=== PATIENT | female | born 1980 | race Hispanic/Latino ===

== ENCOUNTER 2016-12-14 21:11 | Emergency (ER) | payer OTHER | END 2016-12-14 21:58 | disposition home or self-care (01) | LOC: ERS 21:11 | DX: H65.92 Unspecified nonsuppurative otitis media, left ear (principal); E78.5 Hyperlipidemia, unspecified | CPT/HCPCS: 99283 ==

== ENCOUNTER 2017-02-05 14:13 | Emergency (ER) | payer OTHER ==
--- NOTE | 2017-02-05 15:50 | RAD ---
2 VIEW CHEST: Date: 02/05/17 COMPARISON: 03/17/14. INDICATION: Cough and congestion. FINDINGS: Lungs are clear of focal consolidation. No effusion or pneumothorax. Cardiac silhouette is within nor mal limits of size. Minimal linear density left lower lung base is present. IMPRESSION: No focal consolidation. POS: [facility]
== END 2017-02-05 17:00 | disposition home or self-care (01) ==
LOC: ERS 14:13
DX: J06.9 Acute upper respiratory infection, unspecified (principal); G43.909 Migraine, unspecified, not intractable, without status migrainosus; E78.5 Hyperlipidemia, unspecified
CPT/HCPCS: 71020

== ENCOUNTER 2017-04-25 20:35 | Emergency (ER) | payer OTHER, SELFPAY | END 2017-04-25 23:10 | disposition home or self-care (01) | LOC: ERS 20:35 | DX: J30.9 Allergic rhinitis, unspecified (principal); J06.9 Acute upper respiratory infection, unspecified; G43.909 Migraine, unspecified, not intractable, without status migrainosus; E78.5 Hyperlipidemia, unspecified | CPT/HCPCS: 87081; 87430; 87804; 99283 ==

== ENCOUNTER 2017-07-15 09:10 | Emergency (ER) | payer BC, SELFPAY | END 2017-07-15 09:51 | disposition home or self-care (01) | LOC: ERS 09:10 | DX: S66.911A Strain of unspecified muscle, fascia and tendon at wrist and hand level, right hand, initial encounter (principal); E78.5 Hyperlipidemia, unspecified; G43.909 Migraine, unspecified, not intractable, without status migrainosus; T73.3XXA Exhaustion due to excessive exertion, initial encounter ==

== ENCOUNTER 2017-09-10 18:44 | Emergency (ER) | payer BC | END 2017-09-10 19:31 | disposition home or self-care (01) | LOC: ERS 18:44 | DX: I83.893 Varicose veins of bilateral lower extremities with other complications (principal); E78.5 Hyperlipidemia, unspecified; G43.909 Migraine, unspecified, not intractable, without status migrainosus | CPT/HCPCS: 99283 ==

== ENCOUNTER 2017-12-06 20:30 | Emergency (ER) | payer BC | END 2017-12-06 21:32 | disposition home or self-care (01) | LOC: ERS 20:30 | DX: J30.2 Other seasonal allergic rhinitis (principal); G43.909 Migraine, unspecified, not intractable, without status migrainosus | CPT/HCPCS: 99283 ==

== ENCOUNTER 2018-01-01 03:09 | Emergency (ER) | payer BC ==
[2018-01-01] MEDS ORDERED: Ketorolac Tromethamine 60 MG/2 ML VIAL ONE (03:40)
== END 2018-01-01 04:00 | disposition home or self-care (01) ==
LOC: ERS 03:09
DX: M54.6 Pain in thoracic spine (principal); E78.5 Hyperlipidemia, unspecified; G43.909 Migraine, unspecified, not intractable, without status migrainosus; Z79.899 Other long term (current) drug therapy
CPT/HCPCS: 96372; J1885

== ENCOUNTER 2018-03-10 18:10 | Emergency (ER) | payer BC, SELFPAY ==
--- NOTE | 2018-03-10 21:24 | ULT ---
RIGHT LOWER EXTREMITY VENOUS DUPLEX ULTRASOUND INCLUDING COLOR AND SPECTRAL DOPPLER IMAGIN03/10/18 HISTORY: Right posterior knee pain. Exam performed from groin to ankle including visualized greater saphenous, common femoral, superficia l femoral, profunda femoral, popliteal, trifurcation and posterior tibial vein regions. There is phas ic flow at all levels with normal compressibility and normal augmentation. No intraluminal thrombus. IMPRESSION: No evidence for deep venous thrombosis. POS: [facility]
== END 2018-03-10 21:36 | disposition home or self-care (01) ==
LOC: ERS 18:10
DX: I83.893 Varicose veins of bilateral lower extremities with other complications (principal); E78.5 Hyperlipidemia, unspecified; G43.909 Migraine, unspecified, not intractable, without status migrainosus

== ENCOUNTER 2018-06-19 09:01 | Emergency (ER) | payer BC, SELFPAY ==
[2018-06-19 10:14] LABS: #Basophils 0.1 thou/uL (0.0-0.2); #Eosinphils 0.2 thou/uL (0.0-0.7); #Lymphocytes 2.8 thou/uL (1.20-3.40); #Monocytes 0.4 thou/uL (0.11-0.59); #Neutrophils 4.2 thou/uL (1.40-6.50); %Basophils 0.9 % (0.0-1.0); %Eosinophils 2.4 % (0.0-10.0); %Lymphocytes 36.4 % (21.0-51.0); %Monocytes 5.6 % (0.0-10.0); %Neutrophils 54.8 % (42.0-75.0); Hemoglobin 9.9 g/dL (12.0-16.0); Mean Corpuscular HGB CONC 33.5 g/dL (32.0-36.0); Mean Corpuscular Hemoglobin 31.4 pg (27.0-31.0); Mean Corpuscular Volume 93.7 fL (78.0-98.0); Mean Platelet Volume 6.9 fL (7.4-10.4); Platelet Count 382 thou/uL (130-400); RBC Distribution Width 11.3 % (11.5-14.5); Red Blood Cell (RBC) Count 3.16 mill/uL (4.20-5.40); White Blood Cell (WBC) Count 7.7 thou/uL (4.8-10.8)
[2018-06-19 10:20] LABS: BHCG - Serum Negative (NEGATIVE); Pregs Control Background? CLEAR/WHITE (CLR/WHITE); Pregs Control Bar Appear? YES (CONTROL BAR)
== END 2018-06-19 10:57 | disposition home or self-care (01) ==
LOC: ERS 09:01
DX: D64.9 Anemia, unspecified (principal); N93.8 Other specified abnormal uterine and vaginal bleeding; E78.5 Hyperlipidemia, unspecified; G43.909 Migraine, unspecified, not intractable, without status migrainosus
CPT/HCPCS: 36415; 84703; 85025; 99284

== ENCOUNTER 2018-07-28 00:39 | Emergency (ER) | payer BC, SELFPAY | END 2018-07-28 01:12 | disposition home or self-care (01) | LOC: ERS 00:39 | DX: I83.93 Asymptomatic varicose veins of bilateral lower extremities (principal); E78.5 Hyperlipidemia, unspecified; G43.909 Migraine, unspecified, not intractable, without status migrainosus; F17.290 Nicotine dependence, other tobacco product, uncomplicated | CPT/HCPCS: 99283 ==

== ENCOUNTER 2019-01-02 18:31 | Emergency (ER) | payer BC | END 2019-01-02 19:13 | disposition home or self-care (01) | LOC: ERS 18:31 | DX: J04.0 Acute laryngitis (principal); G43.909 Migraine, unspecified, not intractable, without status migrainosus; F17.290 Nicotine dependence, other tobacco product, uncomplicated; E78.00 Pure hypercholesterolemia, unspecified; E78.5 Hyperlipidemia, unspecified; Z79.899 Other long term (current) drug therapy | CPT/HCPCS: 99283 ==

== ENCOUNTER 2019-02-23 18:20 | Emergency (ER) | payer BC ==
--- NOTE | 2019-02-23 19:10 | RAD ---
TWO VIEWS OF THE CHEST: 02/23/19 COMPARISON: 02/05/17 HISTORY: Pain. FINDINGS: Lungs are clear. Heart and mediastinal contours are unremarkable. IMPRESSION: No acute findings. POS: [facility]
[2019-02-23] MEDS ORDERED: Ketorolac Tromethamine 30 MG/ML VIAL ONE (19:34)
== END 2019-02-23 19:56 | disposition home or self-care (01) ==
LOC: ERS 18:20
DX: S39.012A Strain of muscle, fascia and tendon of lower back, initial encounter (principal); G43.909 Migraine, unspecified, not intractable, without status migrainosus; E78.5 Hyperlipidemia, unspecified; E78.00 Pure hypercholesterolemia, unspecified; X50.1XXA Overexertion from prolonged static or awkward postures, initial encounter
CPT/HCPCS: 71046; 96372; J1885

== ENCOUNTER 2019-04-30 18:23 | Emergency (ER) | payer BC ==
[2019-04-30 19:06] LABS: #Basophils 0.1 thou/uL (0.0-0.2); #Lymphocytes 0.4 thou/uL (1.20-3.40); #Monocytes 0.4 thou/uL (0.11-0.59); #Neutrophils 4.5 thou/uL (1.40-6.50); %Basophils 1.2 % (0.0-1.0); %Eosinophils 0.5 % (0.0-10.0); %Lymphocytes 7.2 % (21.0-51.0); %Monocytes 7.1 % (0.0-10.0); Hemoglobin 12.6 g/dL (12.0-16.0); Mean Corpuscular HGB CONC 34.5 g/dL (32.0-36.0); Mean Corpuscular Hemoglobin 33.1 pg (27.0-31.0); Mean Corpuscular Volume 96.1 fL (78.0-98.0); Mean Platelet Volume 7.2 fL (7.4-10.4); Platelet Count 222 thou/uL (130-400); RBC Distribution Width 11.1 % (11.5-14.5); Red Blood Cell (RBC) Count 3.81 mill/uL (4.20-5.40); White Blood Cell (WBC) Count 5.3 thou/uL (4.8-10.8)
--- NOTE | 2019-04-30 19:08 | RAD ---
EXAM: Two views chest PROVIDED CLINICAL HISTORY: Cough COMPARISON: 02/23/2019 FINDINGS: Cardiac silhouette and pulmonary vasculature are within normal limits. Minimal subsegmental atelecta sis is present at each lung base. The lungs are otherwise clear without consolidation or pleural fluid. The osseous structures have a normal appearance. No other interval change from prior study. IMPRESSION: No acute cardiopulmonary process.
[2019-04-30 19:29] LABS: ALT (SGPT) 143 U/L (8-55); AST (SGOT) 69 U/L (5-34); Albumin 4.4 g/dL (3.5-5.0); Alkaline Phosphatase 114 U/L (40-110); Anion Gap 13 mmol/L (10-20); BUN (Urea Nitrogen) 9 mg/dL (7.0-18.7); Bilirubin, Total 0.5 mg/dL (0.2-1.2); Calc. Creatinine Clearance 0 mL/min (70-130); Calcium 8.7 mg/dL (7.8-10.44); Carbon Dioxide 23 mmol/L (22-29); Chloride 103 mmol/L (98-107); Estimated GFR-MDRD 66; Globulin 3.1 g/dL (2.4-3.5); Glucose 182 mg/dL (70-105); Potassium 3.4 mmol/L (3.5-5.1); Protein, Total 7.5 g/dL (6.0-8.3); Sodium 136 mmol/L (136-145)
[2019-04-30 19:54] LABS: Bilirubin Small (Negative); Blood, Urine Large (Negative); Glucose, Urine (Dipstick) Negative (Negative); Leukocyte Negative (Negative); Nitrite Negative (Negative); Protein, Urine (Dipstick) 100 mg/dL (Neg-Trace)
[2019-04-30] MEDS ORDERED: Ondansetron PF 4 MG/2 ML Vial ONE (19:54)
[2019-04-30] MEDS ORDERED: Ketorolac Tromethamine 30 MG/ML VIAL ONE (19:54)
[2019-04-30 19:55] LABS: Lactic Acid 1.5 mmol/L (0.5-2.2)
[2019-04-30 19:59] LABS: Bacteria/HPF None Seen HPF (None Seen); RBC/HPF 21-50 HPF (0-3); Squamous Epithelial 0-3 HPF (0-3); WBC/HPF 0-3 HPF (0-3)
[2019-04-30 20:01] LABS: Clarity Hazy (Clear)
== END 2019-04-30 20:35 | disposition home or self-care (01) ==
LOC: ERS 18:23
DX: J10.1 Influenza due to other identified influenza virus with other respiratory manifestations (principal); G43.909 Migraine, unspecified, not intractable, without status migrainosus; D64.9 Anemia, unspecified; E78.5 Hyperlipidemia, unspecified; E78.00 Pure hypercholesterolemia, unspecified; Z87.891 Personal history of nicotine dependence; Z79.899 Other long term (current) drug therapy
CPT/HCPCS: 36415; 71046; 80053; 81003; 81015; 83605; 85025; 87040; 87086; 87804; 96374; 96375; J1885; J2405

== ENCOUNTER 2019-05-09 17:34 | Emergency (ER) | payer BC ==
[2019-05-09 20:00] LABS: #Basophils 0.1 thou/uL (0.0-0.2); #Eosinphils 0.1 thou/uL (0.0-0.7); #Lymphocytes 2.5 thou/uL (1.20-3.40); #Monocytes 0.4 thou/uL (0.11-0.59); #Neutrophils 3.4 thou/uL (1.40-6.50); %Basophils 0.9 % (0.0-1.0); %Eosinophils 1.8 % (0.0-10.0); %Lymphocytes 38.4 % (21.0-51.0); Mean Corpuscular HGB CONC 35.2 g/dL (32.0-36.0); Mean Corpuscular Volume 93.8 fL (78.0-98.0); Mean Platelet Volume 7.3 fL (7.4-10.4); Platelet Count 432 thou/uL (130-400); Red Blood Cell (RBC) Count 3.63 mill/uL (4.20-5.40); White Blood Cell (WBC) Count 6.5 thou/uL (4.8-10.8)
--- NOTE | 2019-05-09 20:03 | RAD ---
CHEST TWO VIEWS: 05/09/19 HISTORY: Chest pain. COMPARISON: Radiograph 05/08/19. FINDINGS: The lungs are clear. No pneumothorax. No effusion. No acute osseous abnormality. IMPRESSION: No acute intrathoracic abnormality. POS: [facility]
[2019-05-09 20:22] LABS: ALT (SGPT) 114 U/L (8-55); AST (SGOT) 60 U/L (5-34); Albumin 4.3 g/dL (3.5-5.0); Alkaline Phosphatase 86 U/L (40-110); Anion Gap 13 mmol/L (10-20); BUN (Urea Nitrogen) 10 mg/dL (7.0-18.7); Bilirubin, Total 0.4 mg/dL (0.2-1.2); Calc. Creatinine Clearance 0 mL/min (70-130); Carbon Dioxide 24 mmol/L (22-29); Chloride 104 mmol/L (98-107); Estimated GFR-MDRD Greater than 90; Globulin 2.9 g/dL (2.4-3.5); Glucose 88 mg/dL (70-105); Lipase 27 U/L (8-78); Potassium 3.9 mmol/L (3.5-5.1); Protein, Total 7.2 g/dL (6.0-8.3); Sodium 137 mmol/L (136-145)
[2019-05-09 23:53] LABS: Troponin I 0.015 ng/mL (< 0.028)
== END 2019-05-10 00:14 | disposition home or self-care (01) ==
LOC: ERS 17:34
DX: R07.89 Other chest pain (principal); G43.909 Migraine, unspecified, not intractable, without status migrainosus; D64.9 Anemia, unspecified; E78.5 Hyperlipidemia, unspecified; E78.00 Pure hypercholesterolemia, unspecified; Z79.899 Other long term (current) drug therapy
CPT/HCPCS: 36415; 71046; 80053; 83690; 84484; 85025; 93005

== ENCOUNTER 2019-06-06 00:08 | Emergency (ER) | payer BC | END 2019-06-06 00:31 | disposition home or self-care (01) | LOC: ERS 00:08 | DX: J02.8 Acute pharyngitis due to other specified organisms (principal); B97.89 Other viral agents as the cause of diseases classified elsewhere; E78.5 Hyperlipidemia, unspecified; E78.00 Pure hypercholesterolemia, unspecified; G43.909 Migraine, unspecified, not intractable, without status migrainosus; D64.9 Anemia, unspecified | CPT/HCPCS: 99282 ==

== ENCOUNTER 2019-07-11 18:01 | Emergency (ER) | payer BC ==
[2019-07-11] MEDS ORDERED: Dexamethasone 4 MG TAB ONE (18:46)
== END 2019-07-11 18:57 | disposition home or self-care (01) ==
LOC: ERS 18:01
DX: H10.13 Acute atopic conjunctivitis, bilateral (principal); E78.5 Hyperlipidemia, unspecified; E78.00 Pure hypercholesterolemia, unspecified
CPT/HCPCS: 99282; J8540

== ENCOUNTER 2019-11-27 22:31 | Emergency (ER) | payer BC ==
[2019-11-27 23:37] LABS: #Basophils 0.1 thou/uL (0.0-0.2); #Eosinphils 0.1 thou/uL (0.0-0.7); #Lymphocytes 1.5 thou/uL (1.20-3.40); #Monocytes 0.3 thou/uL (0.11-0.59); #Neutrophils 4.9 thou/uL (1.40-6.50); %Basophils 0.9 % (0.0-1.0); %Eosinophils 1.5 % (0.0-10.0); %Lymphocytes 21.6 % (21.0-51.0); %Monocytes 3.9 % (0.0-10.0); %Neutrophils 72.1 % (42.0-75.0); Hemoglobin 11.7 g/dL (12.0-16.0); Mean Corpuscular HGB CONC 33.5 g/dL (32.0-36.0); Mean Corpuscular Volume 95.3 fL (78.0-98.0); Mean Platelet Volume 7.4 fL (7.4-10.4); Platelet Count 263 thou/uL (130-400); RBC Distribution Width 11.1 % (11.5-14.5); Red Blood Cell (RBC) Count 3.67 mill/uL (4.20-5.40); White Blood Cell (WBC) Count 6.8 thou/uL (4.8-10.8)
[2019-11-27 23:44] LABS: PTT 31.2 sec (22.9-36.1); Prothrombin Time 13.6 sec (12.0-14.7)
[2019-11-27 23:51] LABS: BHCG - Serum Negative (NEGATIVE); Pregs Control Background? CLEAR/WHITE (CLR/WHITE); Pregs Control Bar Appear? YES (CONTROL BAR)
[2019-11-28] LABS: ALT (SGPT) 51 U/L (8-55); AST (SGOT) 26 U/L (5-34); Albumin 3.9 g/dL (3.5-5.0); Alkaline Phosphatase 98 U/L (40-110); Anion Gap 14 mmol/L (10-20); BUN (Urea Nitrogen) 11 mg/dL (7.0-18.7); Bilirubin, Total 0.4 mg/dL (0.2-1.2); Calc. Creatinine Clearance 0 mL/min (70-130); Calcium 8.4 mg/dL (7.8-10.44); Carbon Dioxide 24 mmol/L (22-29); Chloride 105 mmol/L (98-107); Estimated GFR-MDRD 84; Glucose 178 mg/dL (70-105); Protein, Total 6.9 g/dL (6.0-8.3); Sodium 139 mmol/L (136-145)
[2019-11-28 00:19] LABS: Thyroid Stimulating Hormone 2.3866 uIU/mL (0.35-4.94)
== END 2019-11-28 00:30 | disposition home or self-care (01) ==
LOC: ERS 22:31
DX: N93.9 Abnormal uterine and vaginal bleeding, unspecified (principal); E78.5 Hyperlipidemia, unspecified; E78.00 Pure hypercholesterolemia, unspecified; G43.909 Migraine, unspecified, not intractable, without status migrainosus; F17.290 Nicotine dependence, other tobacco product, uncomplicated
CPT/HCPCS: 36415; 80053; 84443; 84703; 85025; 85610; 85730; 99284

== ENCOUNTER 2020-05-12 10:44 | Emergency (ER) | payer BC ==
[2020-05-12] MEDS ORDERED: Ketorolac Tromethamine 30 MG/ML VIAL ONE (13:44)
== END 2020-05-12 14:00 | disposition home or self-care (01) ==
LOC: ERS 10:44
DX: M25.512 Pain in left shoulder (principal); M25.562 Pain in left knee; E78.5 Hyperlipidemia, unspecified; E78.00 Pure hypercholesterolemia, unspecified; Z87.891 Personal history of nicotine dependence; W19.XXXA Unspecified fall, initial encounter
CPT/HCPCS: 96372; J1885

== ENCOUNTER 2020-10-20 17:51 | Emergency (ER) | payer BC | END 2020-10-20 21:34 | disposition home or self-care (01) | LOC: ERS 17:51 | DX: S39.012A Strain of muscle, fascia and tendon of lower back, initial encounter (principal); X50.0XXA Overexertion from strenuous movement or load, initial encounter; E78.5 Hyperlipidemia, unspecified; E78.00 Pure hypercholesterolemia, unspecified; G43.909 Migraine, unspecified, not intractable, without status migrainosus; Z87.891 Personal history of nicotine dependence | CPT/HCPCS: 99283 ==

== ENCOUNTER 2022-09-07 18:53 | Emergency (ER) | payer BC, SELFPAY | END 2022-09-07 21:40 | disposition home or self-care (01) | LOC: ERS 18:53 | DX: M79.662 Pain in left lower leg (principal); R60.0 Localized edema; E78.00 Pure hypercholesterolemia, unspecified ==

== ENCOUNTER 2022-11-09 19:21 | Emergency (ER) | payer BC ==
[2022-11-09] MEDS ORDERED: Ibuprofen 200 MG TAB ONE (19:50)
== END 2022-11-09 23:02 | disposition home or self-care (01) ==
LOC: ERS 19:21
DX: H65.02 Acute serous otitis media, left ear (principal); H72.92 Unspecified perforation of tympanic membrane, left ear; E78.00 Pure hypercholesterolemia, unspecified; Z87.891 Personal history of nicotine dependence
CPT/HCPCS: 99282

== ENCOUNTER 2022-12-04 20:42 | Emergency (ER) | payer BC ==
[2022-12-04] MEDS ORDERED: Boostrix 0.5 ML (Tdap) VIAL (>/=7 yrs of age) ONE (22:25)
== END 2022-12-05 00:17 | disposition home or self-care (01) ==
LOC: ERS 20:42
DX: S91.311A Laceration without foreign body, right foot, initial encounter (principal); E78.00 Pure hypercholesterolemia, unspecified; Z23 Encounter for immunization; W26.8XXA Contact with other sharp object(s), not elsewhere classified, initial encounter
CPT/HCPCS: 12002; 90471; 90715

== ENCOUNTER 2023-05-28 12:22 | Emergency (ER) | payer BC, SELFPAY ==
[2023-05-28] MEDS ORDERED: Ibuprofen 200 MG TAB ONE (12:54)
== END 2023-05-28 13:50 | disposition home or self-care (01) ==
LOC: ERS 12:22
DX: M79.671 Pain in right foot (principal); E78.00 Pure hypercholesterolemia, unspecified; Z87.891 Personal history of nicotine dependence

== ENCOUNTER 2023-09-13 08:55 | Emergency (ER) | payer SELFPAY ==
[2023-09-13] MEDS ORDERED: Acetaminophen 500 MG TAB ONE (09:19)
[2023-09-13 10:23] LABS: Influenza A by NAA Not Detected (NotDetected); Influenza B by NAA Not Detected (NotDetected); SARS-CoV-2 NAA Rapid Test Not Detected (NotDetected)
[2023-09-13 10:29] LABS: #Basophils 0.04 10x3/uL (0.0-0.2); %Basophils 0.4 % (0.0-1.0); %Eosinophils 0.4 % (0.0-10.0); %Lymphocytes 18.7 % (21.0-51.0); %Monocytes 5.4 % (0.0-10.0); %Neutrophils 74.7 % (42.0-75.0); Hemoglobin 13.3 g/dL (12.0-16.0); Mean Corpuscular HGB CONC 34.1 g/dL (32.0-36.0); Mean Corpuscular Hemoglobin 31.1 pg (27.0-31.0); Mean Corpuscular Volume 91.1 fL (78.0-98.0); Platelet Count 282 10x3/uL (130-400); Red Blood Cell (RBC) Count 4.28 mill/uL (4.20-5.40)
[2023-09-13 10:46] LABS: ALT (SGPT) 100 U/L (8-55); AST (SGOT) 48 U/L (5-34); Albumin 3.8 g/dL (3.5-5.0); Alkaline Phosphatase 96 U/L (40-110); Anion Gap 11 mmol/L (10-20); BUN (Urea Nitrogen) 12 mg/dL (7.0-18.7); Bilirubin, Total 0.9 mg/dL (0.2-1.2); Calc. Creatinine Clearance 0 mL/min (70-130); Calcium 8.9 mg/dL (7.8-10.44); Carbon Dioxide 23 mmol/L (22-29); Chloride 98 mmol/L (98-107); Estimated GFR 101; Globulin 3.6 g/dL (2.4-3.5); Glucose 131 mg/dL (70-105); Protein, Total 7.4 g/dL (6.0-8.3); Sodium 128 mmol/L (136-145)
[2023-09-13 10:47] LABS: BHCG - Serum Negative (NEGATIVE); Pregs Control Background? CLEAR/WHITE (CLR/WHITE); Pregs Control Bar Appear? YES (CONTROL BAR)
[2023-09-13 13:11] LABS: Bacteria/HPF None Seen HPF (None Seen); Bilirubin Negative (Negative); Blood, Urine Trace (Negative); CAUTI Indications for Culture Alt mental st,lethar; Clarity Clear (Clear); Glucose, Urine (Dipstick) Normal (Negative); Ketone, Urine Negative (Negative); Leukocyte Negative Leu/uL (Negative); Nitrite Negative (Negative); Protein, Urine (Dipstick) Negative (Neg-Trace); RBC/HPF 0-3 HPF (0-3); Specific Gravity, Urine 1.014 (1.002-1.036); Urobilinogen Normal mg/dL (Less than 2); WBC/HPF 0-3 HPF (0-3); pH, Urine 6.5 (5.0-9.0)
[2023-09-13 13:21] LABS: Urine Culture Reflex No No
== END 2023-09-13 14:18 | disposition home or self-care (01) ==
LOC: ERS 08:55
DX: B34.9 Viral infection, unspecified (principal); E87.1 Hypo-osmolality and hyponatremia; I10 Essential (primary) hypertension; Z87.891 Personal history of nicotine dependence
CPT/HCPCS: 36415; 71046; 80053; 81001; 83605; 84703; 85025

== ENCOUNTER 2024-10-31 12:18 | Emergency (ER) | payer SELFPAY | END 2024-10-31 13:30 | disposition home or self-care (01) | LOC: ERS 12:18 | DX: U07.1 COVID-19 (principal); Z87.891 Personal history of nicotine dependence | CPT/HCPCS: 87081; 87428; 87430; 99283 ==